=== PATIENT | female | born 1990 | race Two or more races ===

== ENCOUNTER 2016-06-11 16:05 | Emergency (ER) | payer MEDICAID ==
[~2016-06-11 16:05] MED LIST: COLACE100 M1 PO; IBUPROFEN600 M1 PO; IBUPROFEN800 M1 PO; MOTRIN800 MG PO; NORCO 5-325 TA1 EACH PO; PRENATAL VITAMI1 TAB PO
[2016-06-11] MEDS ORDERED: KEFLEX500 M4 PO (17:01)
== END 2016-06-11 17:06 ==
LOC: EDMED 16:05
PROC: 0HQGXZZ Repair Left Hand Skin, External Approach (ICD-10-PCS; principal; 2016-06-11)
DX: S61.412A Laceration without foreign body of left hand, initial encounter (principal); Z23 Encounter for immunization; W26.0XXA Contact with knife, initial encounter; Y93.G9 Activity, other involving cooking and grilling; Y92.019 Unspecified place in single-family (private) house as the place of occurrence of the external cause; Y99.8 Other external cause status